=== PATIENT | male | born 1970 | race Hispanic/Latino ===

== ENCOUNTER 2018-11-14 13:18 | Emergency (ER) | payer MEDICARE ==
--- NOTE | 2018-11-14 13:27 | Emergency Department Report ---
Blank Doc - Documentation Documentation: This is a 48-year-old male that presents with chronic back pain. Denies any i njuries or trauma. Denies any urinary symptoms. This initial assessment diagnostic orders/clinical plan/treatment(s) is/are subject to change based on patient's health status, clinical progression and re- assessment by fellow clinical providers in the ED. Further treatment and workup at subsequent clinical providers discretion. Patient/guardians urged not to elope from ED s their condition may be serious if not clinically assessed and managed. Initial orders include: 1-Patient sent to [facility] for further evaluation and treatment
[2018-11-14 13:30] VITALS: BP 109/73
--- NOTE | 2018-11-14 18:50 | Emergency Department Report ---
ED Back Pain/Injury HPI - General Chief Complaint: Back Pain/Injury Stated Complaint: BACK PAIN/SOB/ANXIETY Time Seen by Provider: 11/14/18 13:26 Source: patient Mode of arrival: Ambulatory Limitations: No Limitations - History of Present Illness Initial Comments: This is a 48-year-old male here report that he has a history of chronic back pain and he injured his back while he was bending over this morning. And he is back went out on him. Patient said that he use to have pain doctor but he does have a pain doctor and he needs to be referred to her primary care physician. Patient has a history of anxiety, panic attack on on Lyrica. He has a history of chronic back pain. He said pain is 10 and achy. Denies any loss of bowel or bladder function or any numbness or tingling to extremities. No medication taken prior to coming to the emergency room. MD Complaint: back pain, back injury -: This morning Similar Symptoms Previously: Yes Place: home Radiation: none Severity: severe Severity scale (0 -10): 10 Quality: aching Consistency: constant Improves With: none Worsens With: movement, walking Context: bending Associated Symptoms: denies: confusion, weakness, chest pain, numbness, difficulty walking, cough, difficulty urinating, diaphoresis, incontinence, fever/chills, constipation, headaches, abdominal pain, loss of appetite, malaise, nausea/vomiting, rash, seizure, shortness of breath, syncope Treatments Prior to Arrival: other (denies taking any medication) - Related Data Previous Rx's Medication Instructions Recorded Last Taken Type Ondansetron [Zofran ODT TAB] 8 mg PO Q8HR PRN #12 tab.rapdis 11/14/18 Unknown Rx Tramadol HCl [Ultram] 50 mg PO Q8H PRN #12 tablet 11/14/18 Unknown Rx Allergies Allergy/AdvReac Type Severity Reaction Status Date / Time acetaminophen [From Vicodin] Allergy Vomiting Verified 11/14/18 13:23 hydrocodone [From Vicodin] Allergy Vomiting Verified 11/14/18 13:23 ketorolac [From Toradol] Allergy Hives Verified 11/14/18 13:23 ED Review of Systems ROS: Stated complaint: BACK PAIN/SOB/ANXIETY Other details as noted in HPI Constitutional: denies: chills, fever ENT: denies: ear pain, throat pain, congestion Respiratory: denies: cough, shortness of breath, wheezing Cardiovascular: denies: chest pain, palpitations, edema, syncope Gastrointestinal: denies: abdominal pain, nausea, vomiting Genitourinary: denies: urgency, dysuria, hematuria Musculoskeletal: back pain. denies: joint swelling, arthralgia, myalgia Skin: denies: rash Neurological: denies: headache, weakness, numbness, paresthesias, abnormal gait, vertigo ED Past Medical Hx - Past Medical History Previous Medical History?: Yes Hx Psychiatric Treatment: Yes (anxiety,panic attacks- on lyrica) Hx Asthma: Yes Additional medical history: chronic back pain - Surgical History Past Surgical History?: No - Family History Family history: hypertension - Social History Smoking Status: Never Smoker Substance Use Type: None - Medications Home Medications: Home Medications Medication Instructions Recorded Confirmed Last Taken Type Ondansetron [Zofran ODT TAB] 8 mg PO Q8HR PRN #12 tab.rapdis 11/14/18 Unknown Rx Tramadol HCl [Ultram] 50 mg PO Q8H PRN #12 tablet 11/14/18 Unknown Rx ED Physical Exam - General Limitations: No Limitations General appearance: alert, in no apparent distress - Head Head exam: Present: atraumatic, normocephalic, normal inspection - Eye Eye exam: Present: normal appearance, PERRL, EOMI - ENT ENT exam: Present: normal exam, normal orophraynx, mucous membranes moist, TM's normal bilaterally, normal external ear exam - Neck Neck exam: Present: normal inspection, full ROM, other (no C-spine tenderness). Absent: tenderness, lymphadenopathy - Respiratory Respiratory exam: Present: normal lung sounds bilaterally. Absent: respiratory distress, wheezes, rales, rhonchi, stridor, chest wall tenderness, accessory muscle use, decreased breath sounds, prolonged expiratory - Cardiovascular Cardiovascular Exam: Present: regular rate, normal rhythm, normal heart sounds. Absent: systolic murmur, diastolic murmur - GI/Abdominal GI/Abdominal exam: Present: soft, normal bowel sounds. Absent: distended, tenderness, rigid - Extremities Exam Extremities exam: Present: normal inspection, full ROM, normal capillary refill, other (No cce. + 2 pulses in all extremities, no neurovascular compromise). Absent: tenderness, pedal edema, joint swelling, calf tenderness - Back Exam Back exam: Present: normal inspection, full ROM, vertebral tenderness (lumbar), rash noted, other (ambulates without any difficulties). Absent: tenderness, CVA tenderness (R), CVA tenderness (L), muscle spasm, paraspinal tenderness - Expanded Back Exam Expanded Back exam: Negative Straight Leg Raising: Left, Right - Neurological Exam Neurological exam: Present: alert, oriented X3, normal gait, reflexes normal. Absent: motor sensory deficit - Expanded Neurological Exam Expanded Neurological exam: Absent: innattentive, memory loss-remote event, memory loss- recent event, ataxia, receptive aphasia, expressive aphasia, total aphasia, tremor, protecting the airway Patient oriented to: Present: person, place, time Speech: Present: fluid speech Cranial nerves: EOM's Intact: Normal, Gag Reflex: Normal, Tongue Deviation: Normal, Nystagmus: Normal, Facial Sensation: Normal Upper motor neuron: Pronator Drift: Normal, Sensory Extinction: Normal Sensory exam: Upper Extremity Light Touch: Normal, Upper Extremity Temperature: Normal, Lower Extremity Light Touch: Normal, LE 2 Point Discrimination: Normal Motor strength exam: RUE: 5, LUE: 5, RLE: 5, LLE: 5 Best Eye Response ([place]): (4) open spontaneously Best Motor Response ([place]): (6) obeys commands Best Verbal Response ([place]): (5) oriented [place] Total: 15 - Psychiatric Psychiatric exam: Present: normal affect, normal mood - Skin Skin exam: Present: warm, dry, intact, normal color. Absent: rash ED Course Vital Signs 11/14/18 13:23 Temperature 98 F Pulse Rate 85 Respiratory 18 Rate Blood Pressure 109/73 O2 Sat by Pulse 98 Oximetry - Reevaluation(s) Reevaluation #1: 11/14/18 20:06 Patient was given Decadron 10 mg IM in emergency room for lower back pain and I am awaiting his x-ray results. Reevaluation #2: 11/14/18 21:30 Patient x-ray shows mild degenerative disc disease and I explained the same. He is requested pain medication but I told him that he has to have someone to drive him home so he is awaiting an intermodal truck driver. ED Medical Decision Making - Radiology Data Radiology results: report reviewed X-ray of lumbar spine reveals no acute bony abnormality except mild degenerative disc changes at L5 to S1. This was dictated by radiologist's report revealed by myself. Findings [facility] [address] [place] [address] XRay Report Signed Patient: RADHA SALGUERO JR MR#: [id number] : 1970 Acct:[id number] Age/Sex: 48 / M ADM Date: 11/14/18 Loc: ED Attending Dr: Ordering Physician: RUMA GOMEZ Date of Service: 11/14/18 Procedure(s): XR spine lumbosacral 2-3V Accession Number(s): [id number] cc: RUMA GOMEZ Fluoro Time In Minutes: FINAL REPORT EXAM: XR SPINE LUMBOSACRAL 2-3V HISTORY: back injury lower back pain . patient's lower back gave out today. 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 FINDINGS: The vertebral body heights are well maintained. Mild disc space narrowing L5-S1 is seen. The alignment is normal. No evidence for spondylolysis or spondylolisthesis is seen. Pedicles are intact bilaterally at all levels. The paraspinal soft tissues are unremarkable. IMPRESSION: No acute abnormality in the lumbar spine. Mild degenerative disc changes at L5- S1. Transcribed By: [facility] Dictated By: LUDWIG LARIOS MD Electronically Authenticated By: LUDWIG LARIOS MD Signed Date/Time: 11/14/182019 DD/ 19 TD/TT: 11/14/182019 - Medical Decision Making This is a 48-year-old male who is here for pain control due to chronic lower back pain. He said he was bending and he reinjured his back today. Patient is requesting to be referred to primary care doctor so he can get into pain management because he said he was in pain management in the past but he does have a pain doctor at present. Patient received Decadron 10 mg IM emergency room because he does not have any pipeline construction inspector to drive him home. X-ray of lumbar spine shows mild degenerative arthritis at L5 to S1. No fracture or subluxation. I discussed this with the patient and he voiced understanding. He is not having any urinary symptoms. Patient says that he was still in pain but I told him I cannot give him any medication because he does not have a intermodal truck driver and he brought to people in one did not drive and the other was wheelchair bound so I gave him prescription for Ultram 50 mg #12 when necessary and referred him to primary care and primary care can refer him to pain specialist if necessary - Differential Diagnosis FX, versus subluxation versus degenerative arthritis versus strain, Critical care attestation.: If time is entered above; I have spent that time in minutes in the direct care of this critically ill patient, excluding procedure time. ED Disposition Clinical Impression: Acute exacerbation of chronic low back pain Disposition: DC- TO HOME OR SELFCARE Is pt being admited?: No Does the pt Need Aspirin: No Condition: Stable Instructions: Chronic Back Pain (ED) Additional Instructions: Please follow up with primary care doctor and discharge instruction. 4. Call tomorrow to schedule appointment for primary care visit and they can refer you to pain clinic as you had a pain doctor in the past for chronic lower back pain. Take Ultram for pain to please not drive or operate heavy machinery while taking this medication as it causes drowsiness Prescriptions: Ondansetron [Zofran ODT TAB] 8 mg PO Q8HR PRN #12 tab.rapdis PRN Reason: Nausea And Vomiting Tramadol HCl [Ultram] 50 mg PO Q8H PRN #12 tablet PRN Reason: Pain, Moderate (4-6) [facility] [Other] - 2-3 Days ASHLEE MCNEAL MD [Staff Physician] - 2-3 Days Forms: Work/School Release Form(ED)
[2018-11-14] MEDS ORDERED: DECADRON IM STA (18:51)
--- NOTE | 2018-11-14 20:20 | XRay Report ---
FINAL REPORT EXAM: XR SPINE LUMBOSACRAL 2-3V HISTORY: back injury lower back pain . patient's lower back gave out today. 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 FINDINGS: The vertebral body heights are well maintained. Mild disc space narrowing L5-S1 is seen. The alignmen t is normal. No evidence for spondylolysis or spondylolisthesis is seen. Pedicles are intact bilatera lly at all levels. The paraspinal soft tissues are unremarkable. IMPRESSION: No acute abnormality in the lumbar spine. Mild degenerative disc changes at L5-S1.
== END 2018-11-14 23:02 | disposition home or self-care (01) ==
LOC: ED 13:18
DX: M54.5 Low back pain (principal); G89.29 Other chronic pain; J45.909 Unspecified asthma, uncomplicated; Z88.5 Allergy status to narcotic agent; Z88.8 Allergy status to other drugs, medicaments and biological substances
CPT/HCPCS: 72100; 96372; 99283; J1100

== ENCOUNTER 2018-11-15 10:10 | Emergency (ER) | payer MEDICARE ==
--- NOTE | 2018-11-15 13:10 | Emergency Department Report ---
ED Recheck HPI - General Chief Complaint: Back Pain/Injury Stated Complaint: BACK PAIN Time Seen by Provider: 11/15/18 12:50 Source: patient Mode of arrival: Ambulatory Limitations: No Limitations - History of Present Illness Initial Comments: This is a 48-year-old male nontoxic, well nourished in appearance, no acute signs of distress presents to the ED with c/o of chronic lower back pain. Patient is here today for Percocet refills. Patient was seen yesterday and was discharged with Ultram but patient never filled it because he requested Percocet . Patient had xrays done yesterday. Patient denies any trauma. Denies any bladder or bowel instability. Patient denies any urinary symptoms. Denies any fever, chills, nausea, vomiting, headache, stiff neck, chest pain or shortness of breath. Patient denies any numbness or tingling. MD Complaint: medication refill request Returns Today for: request for prescription Symptoms Since Prior Visit: no new symptoms Associated Symptoms: none. denies: fever, chills, chest pain, shortness of breath, rash, malaise, nasuea, abdominal pain - Related Data Previous Rx's Medication Instructions Recorded Last Taken Type Ondansetron [Zofran ODT TAB] 8 mg PO Q8HR PRN #12 tab.rapdis 11/14/18 Unknown Rx Tramadol HCl [Ultram] 50 mg PO Q8H PRN #12 tablet 11/14/18 Unknown Rx Naproxen 500 mg PO Q8H PRN #20 tablet 11/15/18 Unknown Rx Allergies Allergy/AdvReac Type Severity Reaction Status Date / Time acetaminophen [From Vicodin] Allergy Vomiting Verified 11/15/18 10:12 hydrocodone [From Vicodin] Allergy Vomiting Verified 11/15/18 10:12 ketorolac [From Toradol] Allergy Hives Verified 11/15/18 10:12 ED Review of Systems ROS: Stated complaint: BACK PAIN Other details as noted in HPI Constitutional: denies: chills, fever Eyes: denies: eye pain, eye discharge, vision change ENT: denies: ear pain, throat pain Respiratory: denies: cough, shortness of breath, wheezing Cardiovascular: denies: chest pain, palpitations Endocrine: no symptoms reported Gastrointestinal: denies: abdominal pain, nausea, diarrhea Genitourinary: denies: urgency, dysuria Musculoskeletal: back pain. denies: joint swelling, arthralgia Skin: denies: rash, lesions Neurological: denies: headache, weakness, paresthesias Psychiatric: denies: anxiety, depression Hematological/Lymphatic: denies: easy bleeding, easy bruising ED Past Medical Hx - Past Medical History Hx Psychiatric Treatment: Yes (anxiety,panic attacks- on lyrica) Hx Asthma: Yes Additional medical history: chronic back pain - Social History Smoking Status: Current Every Day Smoker - Medications Home Medications: Home Medications Medication Instructions Recorded Confirmed Last Taken Type Ondansetron [Zofran ODT TAB] 8 mg PO Q8HR PRN #12 tab.rapdis 11/14/18 Unknown Rx Tramadol HCl [Ultram] 50 mg PO Q8H PRN #12 tablet 11/14/18 Unknown Rx Naproxen 500 mg PO Q8H PRN #20 tablet 11/15/18 Unknown Rx ED Physical Exam - General Limitations: No Limitations General appearance: alert, in no apparent distress - Head Head exam: Present: atraumatic, normocephalic - Eye Eye exam: Present: normal appearance - Neck Neck exam: Present: normal inspection, full ROM. Absent: tenderness, meningismus, lymphadenopathy - GI/Abdominal GI/Abdominal exam: Present: soft, normal bowel sounds. Absent: distended, tenderness, guarding, rebound, rigid, diminished bowel sounds - Rectal Rectal exam: Present: deferred - Extremities Exam Extremities exam: Present: normal inspection, full ROM - Back Exam Back exam: Present: normal inspection, full ROM, paraspinal tenderness (lumbar paraspinal). Absent: tenderness, CVA tenderness (R), CVA tenderness (L), muscle spasm, vertebral tenderness, rash noted - Expanded Back Exam Expanded Back exam: Absent: saddle anesthesia Back exam: Negative Straight Leg Raising: Right, Left - Neurological Exam Neurological exam: Present: alert, oriented X3 - Psychiatric Psychiatric exam: Present: normal affect, normal mood - Skin Skin exam: Present: warm, dry, intact, normal color. Absent: rash ED Course Vital Signs 11/15/18 10:15 Temperature 98.4 F Pulse Rate 93 H Respiratory 18 Rate Blood Pressure 110/82 [Right] O2 Sat by Pulse 96 Oximetry - Reevaluation(s) Reevaluation #1: 02/26/19 13:12 Patient is speaking in full sentences with no signs of distress noted. ED Recheck MDM - Medical Decision Making This is a 48-year-old male that presents with medication refill. Patient is stable and was examined by me. Patient is requesting for Percocet. The [facility] indicates that he does have total of 28 prescriptions were 11 from providers for several different narcotics. I am concerned about developing addiction. Patient was was prescribed Ultram yesterday but did not feel it. I did instruct the patient that he should fill his medication for pain that was prescribed yesterday. Examination of x-ray has been reviewed from yesterday. No urinary symptoms or CVA tenderness. Patient was referred to Follow-up with a primary care doctor in 3-5 days or if symptoms worsen and continue return to emergency room as soon as possible. At time of discharge, the patient does not seem toxic or ill in appearance. No acute signs of distress noted. Patient agrees to discharge treatment plan of care. No further questions noted by the patient. Critical care attestation.: If time is entered above; I have spent that time in minutes in the direct care of this critically ill patient, excluding procedure time. ED Disposition Clinical Impression: Medication refill Chronic lower back pain Qualifiers: Back pain laterality: unspecified Sciatica presence: unspecified whether sciatica present Qualified Code(s): M54.5 - Low back pain; G89.29 - Other chronic pain Disposition: DC-01 TO HOME OR SELFCARE Is pt being admited?: No Does the pt Need Aspirin: No Condition: Stable Instructions: Chronic Back Pain (ED) Additional Instructions: Follow-up with a primary care doctor in 3-5 days or if symptoms worsen and continue return to emergency room as soon as possible. Prescriptions: Naproxen 500 mg PO Q8H PRN #20 tablet PRN Reason: Pain , Severe (7-10) Referrals: [facility] [Referring] - 3-5 Days MARLYN GOLDEN MD [Staff Physician] - 3-5 Days [facility] [Outside] - [facility] Days [facility] - [facility]-5 Days
== END 2018-11-15 13:34 | disposition home or self-care (01) ==
LOC: ED 10:10
CPT/HCPCS: 99282

== ENCOUNTER 2018-11-19 14:06 | Emergency (ER) | payer MEDICARE ==
[2018-11-19 14:13] VITALS: BP 130/88
--- NOTE | 2018-11-19 14:21 | Emergency Department Report ---
Blank Doc - Documentation Documentation: 48 yo patient c/o of back pain which is chronic. He was here on 11/14 and . He was given prescription for ultram and did not fill because he wanted percocet. No pcp and use to go to Pain specialist. no urnary symptoms. no abdominal pain his initial assessment diagnostic orders/clinical plan/treatment (s) is/Are subject change based on patient's health status, clinical progression and re- assessment by fellow clinical providers in the ED. Further treatment and work-up at subsequent clinical providers discetion. Patient/guardians urged not to elope from s their condition may be serious if not clinically assessed and managed. Inital order include:None
[2018-11-19] MEDS ORDERED: ZOFRAN ODT PO STA (16:59)
--- NOTE | 2018-11-19 16:59 | Emergency Department Report ---
ED General Adult HPI - General Chief complaint: Abdominal Pain Stated complaint: BACK PAIN/N/V Time Seen by Provider: 11/19/18 14:16 Source: patient Mode of arrival: Ambulatory Limitations: No Limitations - History of Present Illness Initial comments: Mr. Cid is a 48-year-old male with past history of chronic back pain was under the care of pain management until a month and half ago after relocating to this region. Pain management doctors and is [facility]. States that he usually takes Percocet and was seen here a couple days ago for the same prescribed Ultram. States he did not get the medication because it did not work for him and he can't take Toradol. States the pain is dull, throbbing, continues to radiate to his lower back and he seeks stronger analgesia for control. He denies any new symptoms or any recent injury. Reports no saddle paresthesias. No loss of bowel or bladder. No numbness or tingling. No ur inary incontinence or retention. Hemoptysis, no hematuria. States he does get not bounce of nausea due to the pain, but currently has no abdominal pain Radiation: non-radiation Severity scale (0 -10): 8 Quality: dull Improves with: none Worsens with: none Associated Symptoms: nausea/vomiting (nausea only. No vomiting). denies: confusion, chest pain, diaphoresis, loss of appetite, malaise, rash, seizure, shortness of breath, syncope - Related Data Previous Rx's Medication Instructions Recorded Last Taken Type Ondansetron [Zofran ODT TAB] 8 mg PO Q8HR PRN #12 tab.rapdis 11/14/18 Unknown Rx Tramadol HCl [Ultram] 50 mg PO Q8H PRN #12 tablet 11/14/18 Unknown Rx Naproxen 500 mg PO Q8H PRN #20 tablet 11/15/18 Unknown Rx Methocarbamol [Robaxin] 750 mg PO Q8H PRN #21 tablet 11/19/18 Unknown Rx Ondansetron [Zofran ODT TAB] 8 mg PO Q12HR #14 tab.rapdis 11/19/18 Unknown Rx predniSONE [Deltasone] 50 mg PO QDAY #5 tab 11/19/18 Unknown Rx Allergies Allergy/AdvReac Type Severity Reaction Status Date / Time acetaminophen [From Vicodin] Allergy Vomiting Verified 11/15/18 10:12 hydrocodone [From Vicodin] Allergy Vomiting Verified 11/15/18 10:12 ketorolac [From Toradol] Allergy Hives Verified 11/15/18 10:12 ED Review of Systems ROS: Stated complaint: BACK PAIN/N/V Other details as noted in HPI Constitutional: denies: chills, fever Eyes: denies: eye pain, eye discharge, vision change ENT: denies: ear pain, throat pain Respiratory: denies: cough, shortness of breath, wheezing Cardiovascular: denies: chest pain, palpitations Endocrine: no symptoms reported Gastrointestinal: denies: abdominal pain, nausea, diarrhea Genitourinary: denies: urgency, dysuria Musculoskeletal: denies: back pain, joint swelling, arthralgia Skin: denies: rash, lesions Neurological: denies: headache, weakness, paresthesias Psychiatric: denies: anxiety, depression Hematological/Lymphatic: denies: easy bleeding, easy bruising ED Past Medical Hx - Past Medical History Hx Psychiatric Treatment: Yes (anxiety,panic attacks- on lyrica) Hx Asthma: Yes Additional medical history: chronic back pain - Social History Smoking Status: Current Every Day Smoker Substance Use Type: None - Medications Home Medications: Home Medications Medication Instructions Recorded Confirmed Last Taken Type Ondansetron [Zofran ODT TAB] 8 mg PO Q8HR PRN #12 tab.rapdis 11/14/18 Unknown Rx Tramadol HCl [Ultram] 50 mg PO Q8H PRN #12 tablet 11/14/18 Unknown Rx Naproxen 500 mg PO Q8H PRN #20 tablet 11/15/18 Unknown Rx Methocarbamol [Robaxin] 750 mg PO Q8H PRN #21 tablet 11/19/18 Unknown Rx Ondansetron [Zofran ODT TAB] 8 mg PO Q12HR #14 tab.rapdis 11/19/18 Unknown Rx predniSONE [Deltasone] 50 mg PO QDAY #5 tab 11/19/18 Unknown Rx ED Physical Exam - General Limitations: No Limitations General appearance: alert, in no apparent distress - Head Head exam: Present: atraumatic, normocephalic - Eye Eye exam: Present: normal appearance - ENT ENT exam: Present: mucous membranes moist - Neck Neck exam: Present: normal inspection - Respiratory Respiratory exam: Present: normal lung sounds bilaterally. Absent: respiratory distress - Cardiovascular Cardiovascular Exam: Present: regular rate, normal rhythm. Absent: systolic murmur, diastolic murmur, rubs, gallop - GI/Abdominal GI/Abdominal exam: Present: soft, normal bowel sounds. Absent: tenderness, guarding - Rectal Rectal exam: Present: deferred - Extremities Exam Extremities exam: Present: normal inspection - Back Exam Back exam: Present: normal inspection, paraspinal tenderness. Absent: CVA tenderness (R), CVA tenderness (L), vertebral tenderness - Neurological Exam Neurological exam: Present: alert, oriented X3, CN II-XII intact, normal gait - Psychiatric Psychiatric exam: Present: normal affect, normal mood. Absent: flat affect, manic - Skin Skin exam: Present: warm, dry, intact, normal color. Absent: rash ED Course Vital Signs 11/19/18 14:12 Temperature 97.4 F L Pulse Rate 76 Respiratory 20 Rate Blood Pressure 130/88 O2 Sat by Pulse 97 Oximetry ED Medical Decision Making - Medical Decision Making This this 48-year-old male has chronic back pain, which is continue to linger however, has not yet taken any of the recommended medications from the ED, he was used to take Percocet times daily but is out of his prescription due to not going back to that pain management doctor and normal Tiro. He stratified pain management doctor in this region and is planning on following up with one on Wednesday. There's been no new injury, no new symptoms, no new medications this back injury. No current abdominal pain. There is some nausea. She thinks this pain related. No diarrhea. He still is able to tolerate oral plan is to give him some pain control while in the ED and we'll discharge him home with sterile reports muscle relaxer. I advised him the importance of him following with his pain management doctor to receive narcotics as we would not be able to fill that from the ED. Critical care attestation.: If time is entered above; I have spent that time in minutes in the direct care of this critically ill patient, excluding procedure time. ED Disposition Clinical Impression: Chronic lower back pain, Medication refill Disposition: DC-01 TO HOME OR SELFCARE Is pt being admited?: No Does the pt Need Aspirin: No Condition: Stable Instructions: Back Pain (ED), Chronic Back Pain (ED) Referrals: [facility] [Provider Group] - 3-5 Days
[2018-11-19] MEDS ORDERED: PERCOCET 5/325 PO STA (17:00)
== END 2018-11-19 18:22 | disposition home or self-care (01) ==
LOC: ED 14:06
DX: G89.29 Other chronic pain (principal); M54.5 Low back pain; Z76.0 Encounter for issue of repeat prescription; J45.909 Unspecified asthma, uncomplicated; F17.200 Nicotine dependence, unspecified, uncomplicated; Z88.6 Allergy status to analgesic agent
CPT/HCPCS: 99282; Q0162